=== PATIENT | female | born 1965 | race Caucasian/White ===

== ENCOUNTER 2019-08-19 11:22 | Emergency (ER) | payer SELFPAY ==
[2019-08-19] MEDS ORDERED: ONDANSETRON HCL INJ/PF 4 MG/2 ML SDV IV ONE (11:36)
[2019-08-19] MEDS ORDERED: MORPHINE SULFATE 10 MG/ML INJ IV ONE ×2 (11:36→14:15)
[2019-08-19] MEDS ORDERED: NORMAL SALINE 1000 ML 1,000 ML IV ONE (11:36)
--- NOTE | 2019-08-19 11:38 | ER Document Report ---
ED Medical Screen (RME) - General Chief Complaint: Abdominal Pain Stated Complaint: ABDOMINAL PAIN/SHARP PAIN/VOMITTING TRAVEL OUTSIDE OF THE [place] IN LAST 30 DAYS: No - HPI Notes: 08/19/19 11:36 Patient is a 53-year-old female with a history of perforated ulcer requiring surgery as well as subsequent abdominal wall hernia that was repaired 2 years ago who presents complaining of mid abdominal pain that is described as moderate to severe. Patient states that she has had pain for the past week, but it is worsening today with nausea and vomiting. Patient states that she did have bowel movement this morning. Has not noticed any melena or hematochezia. She is urinating normally. No fever, chest pain, shortness of breath. I have treated and performed a rapid initial assessment of this patient. A comprehensive ED assessment and evaluation of the patient, analysis of test results and completion of medical decision making process will be conducted by additional ED providers. PHYSICAL EXAMINATION: GENERAL: Well-appearing, well-nourished and in no acute distress. A&Ox4. Answers questions appropriately. Abdomen: Limited exam in triage. Patient does exhibit significant tenderness to the mid abdominal area just inferior to her incision. There is no erythema noted. Difficult to assess if any obvious hernia with standing. - Related Data Allergies/Adverse Reactions: Penicillins Allergy (Verified 08/19/19 11:35) Past Medical History GI Medical History: Reports: Hx Ulcer Past Surgical History: Reports: Hx Abdominal Surgery - ruptured ulcer repair Physical Exam - Vital signs Vitals: Temp Pulse Resp BP Pulse Ox 97.9 F 92 20 174/100 H 98 08/19/19 11:29 08/19/19 11:08/19/19 11:29 08/19/19 11:29 08/19/19 11:29 Course - Vital Signs Vital signs: Temp Pulse Resp BP Pulse Ox 97.9 F 92 20 174/100 H 98 08/19/19 11:29 08/19/19 11:29 08/19/19 11:29 08/19/19 11:29 08/19/19 11:29
[2019-08-19 12:32] LABS: ABSOLUTE BASOPHILS # (AUTO) 0.1 10^3/uL (0.0-0.2); ABSOLUTE EOSINOPHILS # (AUTO) 0.2 10^3/uL (0.0-0.6); ABSOLUTE MONOCYTES (AUTO) 0.9 10^3/uL (0.1-1.4); ABSOLUTE NEUT (AUTO) 6.3 10^3/uL (1.7-8.2); BASOPHILS % (AUTO) 0.9 % (0-2); EOSINOPHILS % (AUTO) 2.3 % (0-6); HEMATOCRIT 38.3 % (36.0-47.0); LYMPHOCYTES % (AUTO) 21.1 % (13-45); MEAN CORPUSCULAR HEMOGLOBIN 30.8 pg (27.0-33.4); MEAN CORPUSCULAR HGB CONC 33.8 g/dL (32.0-36.0); MEAN CORPUSCULAR VOLUME 91 fl (80-97); MONOCYTES % (AUTO) 9.2 % (3-13); PLATELET COUNT 347 10^3/uL (150-450); RED BLOOD COUNT 4.21 10^6/uL (3.72-5.28); RED CELL DISTRIBUTION WIDTH 13.7 % (11.5-14.0); SEGMENTED NEUTROPHILS % (AUTO) 66.5 % (42-78); TOTAL CELLS COUNTED % (AUTO) 100 %; WHITE BLOOD COUNT 9.5 10^3/uL (4.0-10.5)
[2019-08-19 12:35] LABS: APPEARANCE,URINE CLOUDY; BILIRUBIN,URINE NEGATIVE (NEGATIVE); COLOR,URINE YELLOW; GLUCOSE, URINE NEGATIVE (NEGATIVE); KETONES,URINE NEGATIVE (NEGATIVE); PROTEIN,URINE NEGATIVE (NEGATIVE); URINE SPECIFIC GRAVITY 1.018; UROBILINOGEN,URINE NEGATIVE mg/dL (<2.0)
[2019-08-19 12:53] LABS: ALBUMIN 4.1 g/dL (3.5-5.0); ALKALINE PHOSPHATASE 107 U/L (38-126); ANION GAP 11 (5-19); ASPARTATE AMINO TRANSFERASE 41 U/L (14-36); BILIRUBIN,DIRECT 0.2 mg/dL (0.0-0.4); BILIRUBIN,TOTAL 0.4 mg/dL (0.2-1.3); BLOOD UREA NITROGEN 18 mg/dL (7-20); CALCIUM 10.1 mg/dL (8.4-10.2); CARBON DIOXIDE 23 mmol/L (22-30); CHLORIDE 109 mmol/L (98-107); GLUCOSE 78 mg/dL (75-110); POTASSIUM 4.7 mmol/L (3.6-5.0); TOTAL PROTEIN 7.3 g/dL (6.3-8.2)
--- NOTE | 2019-08-19 15:14 | RADIOLOGY REPORT (SQ) ---
EXAM DESCRIPTION: CT ABD/PELVIS WITH IV ORAL COMPLETED DATE/TIME: 08/19/2019 2:47 pm REASON FOR STUDY: mid abd pain COMPARISON: None. TECHNIQUE: CT scan of the abdomen and pelvis performed using helical scanning technique with dynamic intravenous contrast injection. No oral contrast. Images reviewed with lung, soft tissue, and bone windows. Reconstructed coronal and sagittal MPR images reviewed. Delayed images for evaluation of the urinary system also acquired. All images stored on PACS. All CT scanners at this facility use dose modulation, iterative reconstruction, and/or weight based d osing when appropriate to reduce radiation dose to as low as reasonably achievable (ALARA). [facility]: Dose Right [facility]: CareDose [facility]: Dose Right [facility]: Teradose 4D [facility]: Medsurant Monitoring CONTRAST TYPE AND DOSE: contrast/concentration: Isovue 350.00 mg/ml; Total Contrast Delivered: 90.0 ml; Total Saline Delivered: 43.1 ml RENAL FUNCTION: GFR > 60. RADIATION DOSE: CT Rad equipment meets quality standard of care and radiation dose reduction techniq ues were employed. CTDIvol: 7.4 - 10.3 mGy. DLP: 959 mGy-cm.. LIMITATIONS: None. FINDINGS: LOWER CHEST: No significant findings. No nodules or infiltrates. LIVER: Normal size. No masses. No dilated ducts. SPLEEN: Normal size. No focal lesions. PANCREAS: No masses. No significant calcifications. No adjacent inflammation or peripancreatic fluid collections. Pancreatic duct not dilated. GALLBLADDER: No identified stones by CT criteria. No inflammatory changes to suggest cholecystitis. ADRENAL GLANDS: No significant masses or asymmetry. RIGHT KIDNEY AND URETER: No solid masses. No significant calcifications. No hydronephrosis or hyd roureter. LEFT KIDNEY AND URETER: No solid masses. No significant calcifications. No hydronephrosis or hydr oureter. AORTA AND VESSELS: No aneurysm. No dissection. Renal arteries, SMA, celiac without stenosis. RETROPERITONEUM: No retroperitoneal adenopathy, hemorrhage or masses. BOWEL AND PERITONEAL CAVITY: No masses or inflammatory changes. No free fluid or peritoneal masses. Sigmoid diverticulosis. APPENDIX: Normal. PELVIS: No mass. No free fluid. Normal bladder. ABDOMINAL WALL: No masses. There is diastasis rectus status post mesh repair of a midline ventral he rnia. There is a small, fat containing residual ventral hernia at the inferior aspect of this repair (series 3, image 42). BONES: No significant or acute findings. OTHER: No other significant finding. IMPRESSION: 1. No acute CT findings to explain abdominal pain. 2. There is diastasis rectus status post mesh repair of a midline ventral hernia. There is a small, fat containing residual ventral hernia at the inferior aspect of this repair (series 3, image 42). 3. Normal appendix. 4. Diverticulosis without evidence of acute diverticulitis. TECHNICAL DOCUMENTATION: JOB ID: [id number] Quality ID # [id number]: Final reports with documentation of one or more dose reduction techniques (e.g., Au tomated exposure control, adjustment of the mA and/or kV according to patient size, use of iterative reconstruction technique) 2010 [employer] All Rights Reserved Reading location - IP/workstation name: [email or web address]
--- NOTE | 2019-08-19 15:21 | ER Document Report ---
ED GI/ - General Chief Complaint: Abdominal Pain Stated Complaint: ABDOMINAL PAIN/SHARP PAIN/VOMITTING Time Seen by Provider: 08/19/19 11:38 Notes: RME NOTE: Patient is a 53-year-old female with a history of perforated ulcer requiring surgery as well as subsequent abdominal wall hernia that was repaired 2 years ago who presents complaining of mid abdominal pain that is described as moderate to severe. Patient states that she has had pain for the past week, but it is worsening today with nausea and vomiting. Patient states that she did have bowel movement this morning. Has not noticed any melena or hematochezia. She is urinating normally. No fever, chest pain, shortness of breath. MY HPI: Patient voices she vomited approximately 5 times, is denying any blood in her emesis. Patient's denying any diarrhea, fevers, dysuria or vaginal discharge. Patient voices she does not take any acid indigestion medications, states she only takes medication for anxiety, she is unsure of the name. Patient voices she has had this pain intermittently for the last week. States it was more of a sharp and burning sensation today and more frequently which is why she presents to the emergency room. TRAVEL OUTSIDE OF THE [place] IN LAST 30 DAYS: No - Related Data Allergies/Adverse Reactions: Penicillins Allergy (Verified 08/19/19 11:35) Past Medical History - General Information source: Patient - Social History Smoking Status: Current Every Day Smoker Chew tobacco use (# tins/day): No Frequency of alcohol use: Rare Drug Abuse: None Family History: Reviewed & Not Pertinent Patient has suicidal ideation: No Patient has homicidal ideation: No GI Medical History: Reports: Hx Ulcer Past Surgical History: Reports: Hx Abdominal Surgery - ruptured ulcer repair/hernia repair Review of Systems - Review of Systems Constitutional: denies: Fever EENT: No symptoms reported Cardiovascular: No symptoms reported Respiratory: No symptoms reported Gastrointestinal: See HPI Genitourinary: See HPI Female Genitourinary: No symptoms reported Musculoskeletal: No symptoms reported Skin: No symptoms reported Hematologic/Lymphatic: No symptoms reported Neurological/Psychological: No symptoms reported Physical Exam - Vital signs Vitals: Temp Pulse Resp BP Pulse Ox 97.9 F 92 20 174/100 H 98 08/19/19 11:29 08/19/19 11:29 08/19/19 11:29 08/19/19 11:29 08/19/19 11:29 - Notes Notes: GENERAL: Alert, interacts well. No acute distress. HEAD: Normocephalic, atraumatic. EYES: Pupils equal, round, and reactive to light. Extraocular movements intact. ENT: Oral mucosa moist, tongue midline. NECK: Full range of motion. Supple. Trachea midline. LUNGS: Clear to auscultation bilaterally, no wheezes, rales, or rhonchi. No respiratory distress. HEART: Regular rate and rhythm. No murmur ABDOMEN: Soft, well-healed linear surgical scar noted, slight epigastric tenderness and left upper quadrant tenderness noted. Non-distended. Bowel sounds present in all 4 quadrants. EXTREMITIES: Moves all 4 extremities spontaneously. No edema, normal radial and dorsalis pedis pulses bilaterally. No cyanosis. BACK: no cervical, thoracic, lumbar midline tenderness. No saddle anesthesia, normal distal neurovascular exam. No CVA tenderness noted bilaterally. NEUROLOGICAL: Alert and oriented x3. Normal speech. cranial nerves II through XII grossly intact PSYCH: Normal affect, normal mood. SKIN: Warm, dry, normal turgor. No rashes or lesions noted. Course - Re-evaluation Re-evalutation: 08/19/19 15:53 Laboratory 08/19/19 08/19/19 08/19/19 11:52 11:52 12:10 WBC 9.5 RBC 4.21 Hgb 13.0 Hct 38.3 MCV 91 MCH 30.8 MCHC 33.8 RDW 13.7 Plt Count 347 Lymph % (Auto) 21.1 Cook % (Auto) 9.2 Eos % (Auto) 2.3 Baso % (Auto) 0.9 Absolute Neuts (auto) 6.3 Absolute Lymphs (auto) 2.0 Absolute Monos (auto) 0.9 Absolute Eos (auto) 0.2 Absolute Basos (auto) 0.1 Seg Neutrophils % 66.5 Sodium Potassium Chloride Carbon Dioxide Anion Gap BUN Creatinine Est GFR ( Amer) Est GFR (MDRD) Non-Af Glucose Calcium Total Bilirubin Direct Bilirubin Neonat Total Bilirubin Neonat Direct Bilirubin Neonat Indirect Bili AST ALT Alkaline Phosphatase Total Protein Albumin Lipase Urine Color YELLOW Urine Appearance CLOUDY Urine pH 6.0 Ur Specific [place] 1.018 Urine Protein NEGATIVE Urine Glucose (UA) NEGATIVE Urine Ketones NEGATIVE Urine Blood SMALL H Urine Nitrite (Reflex) NEGATIVE Urine Bilirubin NEGATIVE Urine Urobilinogen NEGATIVE Leukocyte Esterase Rfl NEGATIVE Urine RBC (Auto) 2 Urine Bacteria (Auto) TRACE Urine WBC (Reflex) 2 Squamous Epi Cells Auto 19 Urine Mucus (Auto) RARE Urine Ascorbic Acid NEGATIVE Urine HCG, Qual NEGATIVE 08/19/19 12:10 WBC RBC Hgb Hct MCV MCH MCHC RDW Plt Count Lymph % (Auto) Cook % (Auto) Eos % (Auto) Baso % (Auto) Absolute Neuts (auto) Absolute Lymphs (auto) Absolute Monos (auto) Absolute Eos (auto) Absolute Basos (auto) Seg Neutrophils % Sodium 142.5 Potassium 4.7 Chloride 109 H Carbon Dioxide 23 Anion Gap 11 BUN 18 Creatinine 0.72 Est GFR ( Amer) > 60 Est GFR (MDRD) Non-Af > 60 Glucose 78 Calcium 10.1 Total Bilirubin 0.4 Direct Bilirubin 0.2 Neonat Total Bilirubin Not Reportable Neonat Direct Bilirubin Not Reportable Neonat Indirect Bili Not Reportable AST 41 H ALT 37 Alkaline Phosphatase 107 Total Protein 7.3 Albumin 4.1 Lipase 102.2 Urine Color Urine Appearance Urine pH Ur Specific [place] Urine Protein Urine Glucose (UA) Urine Ketones Urine Blood Urine Nitrite (Reflex) Urine Bilirubin Urine Urobilinogen Leukocyte Esterase Rfl Urine RBC (Auto) Urine Bacteria (Auto) Urine WBC (Reflex) Squamous Epi Cells Auto Urine Mucus (Auto) Urine Ascorbic Acid Urine HCG, Qual Abdomen/Pelvis CT 08/19/19 00:00 IMPRESSION: 1. No acute CT findings to explain abdominal pain. 2. There is diastasis rectus status post mesh repair of a midline ventral hernia. There is a small, fat containing residual ventral hernia at the inferior aspect of this repair (series 3, image 42). 3. Normal appendix. 4. Diverticulosis without evidence of acute diverticulitis. Patient's examination does reveal slight epigastric and left upper quadrant abdominal pain noted. CT is as noted above. I discussed with patient potentially using a GI cocktail to see if this is indigestion related. Again patient voices she was never placed on indigestion medications after her perforated ulcer in her stomach was repaired. Patient voices "I had really bad doctors." Patient voices she is new to the area, will give her primary care and gastroenterology follow-up. After GI cocktail patient voices she is feeling better. Discussed continued use of prescription medications with close follow-up with primary care and gastroenterology. - Vital Signs Vital signs: Temp Pulse Resp BP Pulse Ox 98.0 F 73 16 165/94 H 98 08/19/19 16:08 08/19/19 16:08 08/19/19 16:08 08/19/19 16:08 08/19/19 16:08 - Laboratory Result Diagrams: 08/19/19 12:10 08/19/19 12:10 Laboratory results interpreted by me: 08/19/19 08/19/19 11:52 12:10 Chloride 109 H AST 41 H Urine Blood SMALL H Discharge - Discharge Clinical Impression: Abdominal pain Qualifiers: Abdominal location: upper abdomen, unspecified Qualified Code(s): R10.10 - Upper abdominal pain, unspecified Gastritis Qualifiers: Gastritis type: unspecified gastritis Chronicity: chronic Gastritis bleeding: without bleeding Qualified Code(s): K29.50 - Unspecified chronic gastritis without bleeding Nausea & vomiting Qualifiers: Vomiting type: unspecified Vomiting Intractability: non-intractable Qualified Code(s): R11.2 - Nausea with vomiting, unspecified Condition: Stable Disposition: HOME, SELF-CARE Instructions: Abdominal Pain ([facility]), Antinausea Medication ([facility]), Gastritis ([facility]) Additional Instructions: As we discussed you have been seen and treated in the emergency department for your abdominal pain. All of your labs and CT images were normal. I do feel as though this may be indigestion related. Please take medication as prescribed. Please also make sure you follow-up with a primary care provider and hospital unit coordinator. Phone numbers per both doctors are provided in this packet. Please return to the emergency department for any concerns. Prescriptions: Famotidine [Pepcid 40 mg Tablet] 20 mg PO BID #60 tablet Ondansetron [Zofran Odt 4 mg Tablet] 1 - 2 tab PO Q6 PRN #12 tab.rapdis PRN Reason: For Nausea/Vomiting Forms: Elevated Blood Pressure Referrals: MARY KRAMER MD [ACTIVE STAFF] - Follow up as needed SARA SOLOMON MD [ACTIVE STAFF] - Follow up as needed
[2019-08-19] MEDS ORDERED: LIDOCAINE 2% VISCOUS SOLN 20 ML UDCUP PO ONE (15:49)
[2019-08-19] MEDS ORDERED: MAG HYDROX/AL HYDROX/SIMETH SUSP 30 ML UDCUP PO ONE (15:49)
[2019-08-19] MEDS ORDERED: METOCLOPRAMIDE HCL ORAL SOLN 10 MG/10 ML UDCUP PO ONE (15:49)
[2019-08-19 16:08] VITALS: BP 165/94
== END 2019-08-19 17:01 | disposition home or self-care (01) ==
LOC: ER 11:22
DX: K29.50 Unspecified chronic gastritis without bleeding (principal); R10.13 Epigastric pain; R10.12 Left upper quadrant pain; R10.816 Epigastric abdominal tenderness; R10.812 Left upper quadrant abdominal tenderness; R11.2 Nausea with vomiting, unspecified; M62.08 Separation of muscle (nontraumatic), other site; K43.9 Ventral hernia without obstruction or gangrene; K57.30 Diverticulosis of large intestine without perforation or abscess without bleeding; F41.9 Anxiety disorder, unspecified; Z79.899 Other long term (current) drug therapy; F17.200 Nicotine dependence, unspecified, uncomplicated; Z87.11 Personal history of peptic ulcer disease; Z88.0 Allergy status to penicillin
CPT/HCPCS: 36415; 83690; 85025; 81025; 80053; 81001; 74177; J3490; J2270; J2405; J7030; 96361; 96374; 96375; 96376; 99284

== ENCOUNTER 2019-09-30 17:55 | Emergency (ER) | payer SELFPAY ==
[2019-09-30] MEDS ORDERED: MORPHINE SULFATE 10 MG/ML INJ IV ONE (18:59)
[2019-09-30] MEDS ORDERED: ONDANSETRON HCL INJ/PF 4 MG/2 ML SDV IV ONE (18:59)
--- NOTE | 2019-09-30 18:59 | ER Document Report ---
ED Medical Screen (RME) - General Chief Complaint: Abdominal Pain Stated Complaint: ABDOMINAL PAIN/POST INTESTINAL SURGERY Time Seen by Provider: 09/30/19 18:55 TRAVEL OUTSIDE OF THE [place] IN LAST 30 DAYS: No - HPI Notes: 09/30/19 18:58 Patient is a 53-year-old female who is about 6 weeks status post appendectomy with hernia repair the next day complaining of left lower quadrant abdominal pain that is sharp and been present for 2 days. She will have occasional nausea but is not vomiting. She is having normal bowel movements. She is urinating normally. No fever. Patient does have a history of diverticulosis. I have treated and performed a rapid initial assessment of this patient. A comprehensive ED assessment and evaluation of the patient, analysis of test results and completion of medical decision making process will be conducted by additional ED providers. PHYSICAL EXAMINATION: GENERAL: Well-appearing, well-nourished and in no acute distress. A&Ox4. Answers questions appropriately. Abdomen: Limited exam in triage, but tender to the left lower quadrant. - Related Data Allergies/Adverse Reactions: Penicillins Allergy (Verified 09/30/19 18:54) Past Medical History GI Medical History: Reports: Hx Ulcer Past Surgical History: Reports: Hx Abdominal Surgery - ruptured ulcer repair/hernia repair Physical Exam - Vital signs Vitals: Temp Pulse Resp BP Pulse Ox 97.9 F 69 16 156/85 H 98 09/30/19 18:05 09/30/19 18:05 09/30/19 18:05 09/30/19 18:05 09/30/19 18:05 Course - Vital Signs Vital signs: Temp Pulse Resp BP Pulse Ox 97.9 F 69 16 156/85 H 98 09/30/19 18:05 09/30/19 18:05 09/30/19 18:05 09/30/19 18:05 09/30/19 18:05
[2019-09-30 20:27] LABS: ABSOLUTE BASOPHILS # (AUTO) 0.1 10^3/uL (0.0-0.2); ABSOLUTE EOSINOPHILS # (AUTO) 0.4 10^3/uL (0.0-0.6); ABSOLUTE LYMPHOCYTES (AUTO) 2.1 10^3/uL (0.5-4.7); ABSOLUTE NEUT (AUTO) 6.9 10^3/uL (1.7-8.2); EOSINOPHILS % (AUTO) 3.6 % (0-6); HEMATOCRIT 36.4 % (36.0-47.0); HEMOGLOBIN 12.6 g/dL (12.0-15.5); LYMPHOCYTES % (AUTO) 20.1 % (13-45); MEAN CORPUSCULAR HEMOGLOBIN 31.4 pg (27.0-33.4); MEAN CORPUSCULAR HGB CONC 34.5 g/dL (32.0-36.0); MEAN CORPUSCULAR VOLUME 91 fl (80-97); MONOCYTES % (AUTO) 9.6 % (3-13); PLATELET COUNT 289 10^3/uL (150-450); RED BLOOD COUNT 4.01 10^6/uL (3.72-5.28); RED CELL DISTRIBUTION WIDTH 13.6 % (11.5-14.0); SEGMENTED NEUTROPHILS % (AUTO) 65.7 % (42-78); TOTAL CELLS COUNTED % (AUTO) 100 %; WHITE BLOOD COUNT 10.6 10^3/uL (4.0-10.5)
[2019-09-30 20:44] LABS: ALBUMIN 3.9 g/dL (3.5-5.0); ALKALINE PHOSPHATASE 98 U/L (38-126); ANION GAP 11 (5-19); ASPARTATE AMINO TRANSFERASE 19 U/L (14-36); BILIRUBIN,DIRECT 0.3 mg/dL (0.0-0.4); BILIRUBIN,TOTAL 0.3 mg/dL (0.2-1.3); BLOOD UREA NITROGEN 17 mg/dL (7-20); CALCIUM 9.5 mg/dL (8.4-10.2); CARBON DIOXIDE 21 mmol/L (22-30); CHLORIDE 108 mmol/L (98-107); GLUCOSE 83 mg/dL (75-110); POTASSIUM 3.6 mmol/L (3.6-5.0); TOTAL PROTEIN 7.1 g/dL (6.3-8.2)
[2019-09-30 21:01] LABS: APPEARANCE,URINE SLIGHTLY-CLOUDY; BILIRUBIN,URINE NEGATIVE (NEGATIVE); COLOR,URINE YELLOW; GLUCOSE, URINE NEGATIVE (NEGATIVE); KETONES,URINE NEGATIVE (NEGATIVE); PROTEIN,URINE 30 mg/dL (NEGATIVE); URINE SPECIFIC GRAVITY 1.032; UROBILINOGEN,URINE NEGATIVE mg/dL (<2.0)
[2019-09-30] MEDS ORDERED: NORMAL SALINE 1000 ML 1,000 ML IV ONE ×2 (21:20)
--- NOTE | 2019-09-30 21:26 | ER Document Report ---
ED GI/ - General Chief Complaint: Abdominal Pain Stated Complaint: ABDOMINAL PAIN/POST INTESTINAL SURGERY Time Seen by Provider: 09/30/19 18:55 Primary Care Provider: ERNA CHRISTOPHER MD [Primary Care Provider] - Follow up as needed Mode of Arrival: Ambulatory Information source: Patient Notes: 53-year-old female presented to ED for complaint of abdominal pain lower right and left abdomen. She states is actually been hurting since she had her appendectomy and hernia repair the day after Thanksgiving but is been worse the last 2 days. She states she has been nausea no vomiting. She states she has been having normal bowel movements. She states she is urinating with no difficulty no pain blood or discharge. She denies any fevers. She states she does have a history of diverticulosis but not diverticulitis. Patient is alert oriented respirations regular nonlabored answering all questions appropriately. TRAVEL OUTSIDE OF THE [place] IN LAST 30 DAYS: No - HPI Patient complains to provider of: Abdominal pain - Left and right lower abdomen Onset: Other - Since her appendectomy and hernia repair after Thanksgiving Timing/Duration: Persistent, Worse Quality of pain: Sharp Severity at maximum: Moderate Severity in ED: Moderate Pain Level: 3 Location: LLQ, RLQ Vaginal bleeding (Compared to normal period): None Associated symptoms: Nausea. denies: Diarrhea, Vomiting Exacerbated by: Movement, Food Relieved by: Denies Similar symptoms previously: Yes Recently seen / treated by doctor: Yes - Related Data Allergies/Adverse Reactions: Penicillins Allergy (Verified 09/30/19 18:54) Past Medical History - General Information source: Patient - Social History Smoking Status: Current Every Day Smoker Cigarette use (# per day): Yes - 1/2 pack/day Chew tobacco use (# tins/day): No Smoking Education Provided: Yes - 4 minutes Frequency of alcohol use: None Drug Abuse: None Lives with: Family Family History: Reviewed & Not Pertinent Patient has suicidal ideation: No Patient has homicidal ideation: No - Past Medical History Cardiac Medical History: Reports: None Pulmonary Medical History: Reports: None EENT Medical History: Reports: None Neurological Medical History: Reports: None Endocrine Medical History: Reports: None Renal/ Medical History: Reports: None Malignancy Medical History: Reports: None GI Medical History: Reports: Hx Ulcer, Hx Colonoscopy, Hx Endoscopy, Other - Reticulosis, hernias Musculoskeletal Medical History: Reports None Skin Medical History: Reports None Psychiatric Medical History: Reports: Hx Anxiety Traumatic Medical History: Reports: None Infectious Medical History: Reports: None Past Surgical History: Reports: Hx Abdominal Surgery - ruptured ulcer repair/hernia repair, small bowel repair, Hx Appendectomy, Hx Tubal Ligation - Immunizations Immunizations up to date: Yes Hx Diphtheria, Pertussis, Tetanus Vaccination: Yes - 2012 History of Influenza Vaccine for 06/2019 - 11/2019 Season: Yes Review of Systems - Review of Systems Constitutional: No symptoms reported EENT: No symptoms reported Cardiovascular: No symptoms reported Respiratory: No symptoms reported Gastrointestinal: Abdominal pain, Nausea Genitourinary: No symptoms reported Female Genitourinary: No symptoms reported Musculoskeletal: No symptoms reported Skin: No symptoms reported Hematologic/Lymphatic: No symptoms reported Neurological/Psychological: No symptoms reported -: Yes All other systems reviewed and negative Physical Exam - Vital signs Vitals: Temp Pulse Resp BP Pulse Ox 97.9 F 69 16 156/85 H 98 09/30/19 18:05 09/30/19 18:05 09/30/19 18:05 09/30/19 18:05 09/30/19 18:05 Interpretation: Normal - General General appearance: Appears well, Alert - HEENT Head: Normocephalic, Atraumatic Eyes: Normal Pupils: PERRL - Respiratory Respiratory status: No respiratory distress Chest status: Nontender Breath sounds: Normal Chest palpation: Normal - Cardiovascular Rhythm: Regular Heart sounds: Normal auscultation Murmur: No - Abdominal Inspection: Normal Distension: No distension Bowel sounds: Normal Tenderness: Tender - Left and right lower abdomen Organomegaly: No organomegaly - Back Back: Normal, Nontender - Extremities General upper extremity: Normal inspection, Nontender, Normal color, Normal ROM, Normal temperature General lower extremity: Normal inspection, Nontender, Normal color, Normal ROM, Normal temperature, Normal weight bearing. No: Zenaida's sign - Neurological Neuro grossly intact: Yes Cognition: Normal Orientation: AAOx4 Ragini Coma Scale Eye Opening: Spontaneous Austin Coma Scale Verbal: Oriented Austin Coma Scale Motor: Obeys Commands Ragini Coma Scale Total: 15 Speech: Normal Motor strength normal: LUE, RUE, LLE, RLE Sensory: Normal - Psychological Associated symptoms: Normal affect, Normal mood - Skin Skin Temperature: Warm Skin Moisture: Dry Skin Color: Normal Course - Re-evaluation Re-evalutation: 10/01/19 10:49 Patient was treated with narcotics nausea medicine and IV fluids for her abdominal pain and mild dehydration. Patient had no acute findings on her CAT scan. She was discharged home after 2 L of fluid and a negative CAT scan with instructions to follow-up with her primary care. Patient verbalized understanding and agreement treatment plan patient was discharged home. - Vital Signs Vital signs: Temp Pulse Resp BP Pulse Ox 98.3 F 69 19 154/94 H 96 10/01/19 01:01 09/30/19 18:05 10/01/19 01:01 10/01/19 01:01 10/01/19 01:01 - Laboratory Result Diagrams: 09/30/19 19:50 09/30/19 19:50 Laboratory results interpreted by me: 09/30/19 09/30/19 09/30/19 19:50 19:50 20:07 WBC 10.6 H Chloride 108 H Carbon Dioxide 21 L Urine Protein 30 H Urine Blood SMALL H - Diagnostic Test Radiology reviewed: Image reviewed, Reports reviewed Discharge - Discharge Clinical Impression: Abdominal pain Qualifiers: Abdominal location: lower abdomen, unspecified Qualified Code(s): R10.30 - Lower abdominal pain, unspecified Condition: Stable Disposition: HOME, SELF-CARE Additional Instructions: ABDOMINAL PAIN: There are many causes of abdominal pain. Pain can mean a serious problem requiring surgery (such as appendicitis). It can also be an innocent problem that goes away on its own (such as a viral infection). Often, time must pass to determine the cause of pain. The physician does not feel that hospitalization is necessary, at present. Things may change within the next 24 hours. Call the doctor or come back for re- examination if any problems occur, such as: (1) Pain that becomes more severe, steady, or becomes concentrated in one specific area. Also, pain that is more severe with movement or coughing. (2) Vomiting that persists or becomes more frequent. (3) Blood in the vomitus, urine, or bowel movements. Blood in the stool may have a tarry or black appearance. (4) Shaking chills or fever greater than 100 degrees F. (5) The abdomen becomes more distended or swollen. (6) Bowel movements cease. (7) Failure to improve as expected. NORMAL EXAM AND WORKUP: At this time, your examination and workup show no significant abnormality. No significant abnormal physical findings are noted. All laboratory, EKG, and imaging (x-ray, CT scans, ultrasound) studies that were ordered show no significant abnormality. Although your examination and all studies that were ordered showed no significant abnormal finding, there are no examinations and no studies that are 100% accurate. There is always the possibility that some abnormality could exist and not be detected with physical examination or within the limits and capabilities of laboratory and other studies. You should return or follow up as you were instructed on your visit today for further evaluation if your symptoms do not resolve. PAIN MEDICATION INJECTION: You have received an injection of a pain medication. You should experience significant pain relief within 45 minutes. This drug is a narcotic -- it will impair your judgement, slow your reaction time and make you sleepy (as well as relieve your pain). Narcotics also can cause nausea. You should not drive, work with machinery, or perform any task requiring mental alertness until all effects of the medication are gone -- six to eight hours. Do not take any alcohol, or sedatives, and do not take any other medication without checking with your physician. ANTINAUSEA MEDICATION: You have been given a medication to suppress nausea and vomiting. This type of medication can be given as a shot, pill, or suppository. It will usually last for many hours. Pills and shots usually last six to eight hours, suppositories last about 12 hours. For the typical illness, only one or two doses of the medication may be necessary. Mild lightheadedness may occur. This type of medicine can cause drowsiness. Do not drive or operate dangerous machinery while under its influence. Do not mix with alcohol. See your doctor at once if you have muscle spasms or tightness, or uncontrollable motions (particularly of the neck, mouth, or jaw). Persistent vomiting or severe lightheadedness should also be evaluated by the physician. FOLLOW-UP CARE: If you have been referred to a physician for follow-up care, call the physicians office for an appointment as you were instructed or within the next two days. If you experience worsening or a significant change in your symptoms, notify the physician immediately or return to the Emergency Department at any t casey for re-evaluation. Forms: Elevated Blood Pressure, Smoking Cessation Education, Return to Work Referrals: ERNA CHRISTOPHER MD [Primary Care Provider] - Follow up as needed
[2019-09-30] MEDS ORDERED: HYDROMORPHONE HCL INJ/PF 2 MG/ML AMPULE IV ONE (21:49)
--- NOTE | 2019-09-30 23:28 | RADIOLOGY REPORT (SQ) ---
CT abdomen and pelvis with contrast on 09/30/2019 9:25 PM CLINICAL INDICATION: Left lower quadrant pain TECHNIQUE: Multiple axial images are obtained throughout the abdomen and pelvis following the administration of IV contrast, 88 mL of Omnipaque 350 contrast was administered intravenously without complication. This exam was performed according to our departmental dose-optimization program, which includes automated exposure control, adjustment of the mA and/or kV according to patient size and/or use of iterative reconstruction technique. Total DLP is 897.25 mGy*cm. COMPARISON: 08/19/2019 FINDINGS: Abdomen: There is minimal bibasilar atelectasis and/or scarring. Stable left hepatic cyst is noted. The solid abdominal organs are otherwise unremarkable. There is no abdominal adenopathy. There is no free fluid or free air within the abdomen. The abdominal portion of the GI tract is unremarkable. The patient is status post anterior abdominal wall hernia repair. Pelvis: Pelvic organs appear unremarkable by CT. There is no free fluid in the pelvis. There is diverticulosis. Pelvic portion of the GI tract is otherwise unremarkable. There is no pelvic adenopathy. No bony abnormality is noted. IMPRESSION: 1. Diverticulosis. 2. No acute abnormality.
[2019-10-01 01:07] VITALS: BP 154/94
== END 2019-10-01 01:10 | disposition home or self-care (01) ==
LOC: ER 17:55
DX: R10.31 Right lower quadrant pain (principal); R10.32 Left lower quadrant pain; R11.0 Nausea; E86.0 Dehydration; F17.210 Nicotine dependence, cigarettes, uncomplicated; Z71.6 Tobacco abuse counseling; Z90.49 Acquired absence of other specified parts of digestive tract; Z98.890 Other specified postprocedural states; Z88.0 Allergy status to penicillin
CPT/HCPCS: 99406; 99284; 96361; 96374; 96375; 36415; 83690; 85025; 80053; 81001; 74177; J2270; J1170; J2405; J7030

== ENCOUNTER 2020-01-03 10:13 | Emergency (ER) | payer SELFPAY ==
--- NOTE | 2020-01-03 10:40 | ER Document Report ---
HPI - HPI Onset: Other - 3 days Context: Patient presents to the [facility] for evaluation of upper respiratory symptoms. Patient reports fever of 102, chills, body aches runny nose and sore throat. Patient does report cough and occasional shortness of breath. Patient denies any nausea or vomiting. Patient denies any abdominal tenderness. Patient does complain of some headache pain. Patient is currently a smoker half pack per day. Patient denies any significant medical history. She reports symptoms for the past 3 days. Associated Symptoms: Body/muscle aches, Nonproductive cough, Fever, Rhinnorhea, Sore throat Exacerbated by: Denies Relieved by: Denies Recently seen / treated by doctor: No - ROS ROS below otherwise negative: Yes Systems Reviewed and Negative: Yes All other systems reviewed and negative - CONSTITUTIONAL Constitutional: REPORTS: Fever, Chills - EENT EENT: REPORTS: Sore Throat, Congestion - NEURO Neurology: REPORTS: Headache - RESPIRATORY Respiratory: REPORTS: Coughing - GASTROINTESTINAL Gastrointestinal: DENIES: Abdominal Pain, Nausea, Patient vomiting, Diarrhea - REPRODUCTIVE Reproductive: DENIES: : - DERM Skin Color: Normal Skin Problems: None Past Medical History - General Information source: Patient - Social History Smoking Status: Current Every Day Smoker Family History: Reviewed & Not Pertinent GI Medical History: Reports: Hx Ulcer, Hx Colonoscopy, Hx Endoscopy Psychiatric Medical History: Reports: Hx Anxiety Past Surgical History: Reports: Hx Abdominal Surgery - ruptured ulcer repair/hernia repair, small bowel repair, Hx Appendectomy, Hx Tubal Ligation - Immunizations Immunizations up to date: Yes Hx Diphtheria, Pertussis, Tetanus Vaccination: Yes - 2013 [facility] Provider Document - CONSTITUTIONAL Agree With Documented VS: Yes Exam Limitations: No Limitations General Appearance: WD/WN, No Apparent Distress - INFECTION CONTROL TRAVEL OUTSIDE OF THE [place] IN LAST 30 DAYS: No - HEENT HEENT: Atraumatic, Normocephalic, Pharyngeal Tenderness. negative: Pharyngeal Exudate, Pharyngeal Erythema - NECK Neck: Normal Inspection, Supple - RESPIRATORY Respiratory: No Respiratory Distress, Chest Non-Tender, Wheezing - faint scattered - CARDIOVASCULAR Cardiovascular: Regular Rate, Regular Rhythm, No Murmur - MUSCULOSKELETAL/EXTREMETIES Musculoskeletal/Extremeties: MAEW - NEURO Level of Consciousness: Awake, Alert, Appropriate Motor/Sensory: No Motor Deficit - DERM Integumentary: Warm, Dry, No Rash Course - Re-evaluation Re-evalutation: 01/03/20 12:05 The patient was evaluated during the global Covid 19 pandemic, and that diagnosis was suspected/considered upon their initial presentation. Their evaluation, treatment and testing was consistent with current guidelines for patients who present with complaints or symptoms that may be related to Covid 19. Patient presents with upper respiratory symptoms worrisome for possible Covid 19. Patient does not have emergency worring symptoms such as difficulty breathing, shortness of breath, chest pain, pressure, confusion or cyanosis. Patient appears suitable for discharge as they are not of an advanced age, do not have any chronic medical conditions such as diabetes, CAD, immune deficiency, chronic lung disease or chronic kidney disease. Patient's vital signs are stable and patient is nontoxic in appearance. Good return precautions have been discussed with patient, patient verbalized understanding and is agreeable with discharge plan of care at this time. Decision not to send specimen for meyers virus testing was based on screening criteria per the [facility] December 19 recommendations as patient does not have any significant chronic medical problems is not greater than 65 years of age, is not , does not work in healthcare setting and has not had known contact with someone diagnosed with a virus. - Laboratory Laboratory results interpreted by me: 01/03/20 12:05 Labs- Entire Visit 01/03/20 01/03/20 10:38 10:38 Influenza A (Rapid) NEGATIVE Influenza B (Rapid) NEGATIVE Group A Strep Rapid NEGATIVE Discharge - Discharge Clinical Impression: Sore throat Upper respiratory infection Qualifiers: URI type: unspecified URI Qualified Code(s): J06.9 - Acute upper respiratory infection, unspecified Condition: Stable Disposition: HOME, SELF-CARE Instructions: Acetaminophen, Sore Throat ([facility]), Upper Respiratory Illness ([facility]) Additional Instructions: Return immediately for any new or worsening symptoms Followup with your primary care provider, call tomorrow to make a followup appointment We will notify you of your strep and flu test later today. If you feel that you cannot manage her symptoms at home, present to the emergency department for further evaluation. Call 911 if your symptoms become severe. Prescriptions: Inhaler,Assist Device,Accesory [Optichamber] 1 each MC Q4 PRN #1 each PRN Reason: Albuterol Sulfate [Proair Hfa Inhalation Aerosol 8.5 gm Mdi] 2 puff IH Q4 PRN #1 mdi PRN Reason: Forms: Return to Work
[2020-01-03 11:35] VITALS: BP 175/88
[2020-01-03 11:38] LABS: A TYPE INFLUENZA AG NEGATIVE (NEGATIVE); B INFLUENZA AG NEGATIVE (NEGATIVE)
== END 2020-01-03 13:21 | disposition home or self-care (01) ==
LOC: EDRDC 10:13
DX: J06.9 Acute upper respiratory infection, unspecified (principal); Z20.828 Contact with and (suspected) exposure to other viral communicable diseases; J02.9 Acute pharyngitis, unspecified; R50.9 Fever, unspecified; R05 Cough; J34.89 Other specified disorders of nose and nasal sinuses; R51 Headache; M79.10 Myalgia, unspecified site; F17.200 Nicotine dependence, unspecified, uncomplicated
CPT/HCPCS: 87070; 87804; 87880; 99211

== ENCOUNTER 2020-06-01 15:22 | Emergency (ER) | payer OTHER ==
--- NOTE | 2020-06-01 15:41 | ER Document Report ---
ED Extremity Problem, Upper - General Chief Complaint: Arm Injury Stated Complaint: ARM INJURY Time Seen by Provider: 06/01/20 15:29 Primary Care Provider: [facility] [Provider Group] - Follow up as needed IGLESIA TOTH MD [NO LOCAL MD] - Follow up as needed Mode of Arrival: Ambulatory Information source: Patient Notes: 54-year-old female presented to ED for increasing pain to the right arm over the last 3 weeks. She states this started being in the lower arm but now it hurts in the elbow shoulder and hand. She states even the fingers are now. She is alert oriented respirations regular nonlabored speaking in full sentences. She does have a history of an appendectomy and ulcers. 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 She does smoke 1/2 pack a day. REVIEW OF SYSTEMS: CONSTITUTIONAL : Denies fever, chills, or sweats. Denies recent illness. MUSCULOSKELETAL: Denies neck or back pain or joint pain or swelling. NEUROLOGICAL: Denies altered mental status or loss of consciousness. Denies headache. Denies weakness or paralysis or loss of use of either side. Denies problems with gait or speech. Denies sensory or motor loss. PSYCHIATRIC: Denies anxiety or stress or depression. ALL OTHER SYSTEMS REVIEWED AND NEGATIVE. VITAL SIGNS: Within normal limits. GENERAL: No acute distress, non-toxic appearance. HEAD: Normal with no signs of head trauma. NECK: Normal range of motion, no tenderness, supple, no lymphadenopathy, No adenopathy, no JVD. CHEST: Clear breath sounds bilaterally. No wheezes, rales, or rhonchi. CARDIAC: Regular rate and rhythm. S1 and S2, without murmurs, gallops, or rubs. MUSCULOSKELETAL: Good range of motion of all major joints. Extremities without clubbing, cyanosis or edema. NEUROLOGICAL: Alert and oriented x 3. No focal sensory or strength deficits. Speech normal. Follows commands appropriately. PSYCHIATRIC: Normal Affect, judgement and mood. SKIN: Normal appearance with no rashes or lesions. TRAVEL OUTSIDE OF THE [place] IN LAST 30 DAYS: No - HPI Patient complains to provider of: Pain, Right, Elbow, Forearm, Hand, Wrist, Shoulder Onset: Other - 3 weeks Recent injury: No Quality of pain: Achy, Sharp Severity of pain: Moderate Pain Level: 4 Exacerbated by: Movement, Exertion Relieved by: Rest, Positioning Similar symptoms previously: Yes Recently seen / treated by doctor: No - Related Data Allergies/Adverse Reactions: Penicillins Allergy (Verified 09/30/19 18:54) Home Medications: xanax 1mg. trazadone 100mg hs Past Medical History - General Information source: Patient - Social History Smoking Status: Current Every Day Smoker Cigarette use (# per day): Yes - Half pack a day Smoking Education Provided: Yes - 4 minutes Frequency of alcohol use: None Drug Abuse: None Lives with: Family Family History: Reviewed & Not Pertinent Patient has suicidal ideation: No Patient has homicidal ideation: No - Past Medical History Cardiac Medical History: Reports: None Pulmonary Medical History: Reports: None EENT Medical History: Reports: None Neurological Medical History: Reports: None Endocrine Medical History: Reports: None Renal/ Medical History: Reports: None Malignancy Medical History: Reports: None GI Medical History: Reports: Hx Ulcer, Hx Colonoscopy, Hx Endoscopy Musculoskeletal Medical History: Reports None Skin Medical History: Reports None Psychiatric Medical History: Reports: Hx Anxiety Traumatic Medical History: Reports: None Infectious Medical History: Reports: None Past Surgical History: Reports: Hx Abdominal Surgery - ruptured ulcer repair/hernia repair, small bowel repair, Hx Appendectomy, Hx Tubal Ligation - Immunizations Immunizations up to date: Yes Hx Diphtheria, Pertussis, Tetanus Vaccination: Yes - 2012 Physical Exam - Vital signs Vitals: Temp Pulse Resp BP Pulse Ox 98.0 F 98 16 175/105 H 100 06/01/20 15:28 06/01/20 15:28 06/01/20 15:28 06/01/20 15:28 06/01/20 15:28 Course - Re-evaluation Re-evalutation: 06/01/20 21:34 X-rays discussed with patient and written report of x-rays given to patient. Patient decided she did not want the sling before discharge. She was instructed to please follow-up with her primary care and a orthopedic or back specialist. She did have mild disc height loss at C5-C7 with bilateral neural foramen narr owing. This was discussed with her and the patient was instructed please to follow-up. - Vital Signs Vital signs: Temp Pulse Resp BP Pulse Ox 98.2 F 75 16 178/90 H 97 06/01/20 17:05 06/01/20 17:05 06/01/20 15:28 06/01/20 17:05 06/01/20 17:05 - Diagnostic Test Radiology reviewed: Image reviewed, Reports reviewed Discharge - Discharge Clinical Impression: Degenerative disc disease, cervical, Foraminal narrowing cervical Condition: Stable Disposition: HOME, SELF-CARE Additional Instructions: I have discussed your x-rays with you. I have given you a written report of all of your x-rays Please follow-up with neurology and orthopedics. I have given you the back specialist number for the orthopedics and the local neurologist. Acetaminophen Acetaminophen may be taken for pain relief or fever control. It's much safer than aspirin, offering a wider range of "safe" dosages. It is safe during . Some brand names are Tylenol, Panadol, Datril, Anacin 3, Tempra, and Liquiprin. Acetaminophen can be repeated every four hours. The following are maximum recommended dosages: WEIGHT Dose Drops Elixir Chewable(80mg) (LBS.) drprs=droppers tsp=teaspoon 6 40 mg .4 ml (1/2) 6-11 80 mg .8 ml (full) 1/2 tsp 1 tab 12-16 120 mg 1 1/2 drprs 3/4 tsp 1 1/2 tabs 17-23 160 mg 2 drprs 1 tsp 2 tabs 24-30 240 mg 3 drprs 1 1/2 tsp 3 tabs 30-35 320 mg 2 tsp 4 tabs 36-41 360 mg 2 1/4 tsp 4 1/2 tabs 42-47 400 mg 2 1/2 tsp 5 tabs 48-53 480 mg 3 tsp 6 tabs 54-59 520 mg 3 1/4 tsp 6 1/2 tabs 60-64 560 mg 3 1/2 tsp 7 tabs 65-70 600 mg 3 3/4 tsp 7 1/2 tabs 71-76 640 mg 4 tsp 8 tabs 77-82 720 mg 4 1/2 tsp 9 tabs 83-88 800 mg 5 tsp 10 tabs >89 pounds or adults 650 mg to 900 mg Acetaminophen can be repeated every four hours. Maximum daily dose not to exceed 4000 mg. These maximum recommended dosages are slightly higher than the dosages written on the product container, but these dosages are very safe and well below the toxic dosage for acetaminophen. Ibuprofen Ibuprofen is an excellent, safe drug for pain control. In addition, it has potent antiinflammatory effects which are beneficial, especially in the treatment of injuries, arthritis, or tendonitis. It's best to take ibuprofen with food. Persons with ulcer disease or allergy to aspirin should notify their physician of this before taking ibuprofen. Take the medication exactly as prescribed. Don't take additional doses unless instructed to do so by your doctor. If you develop wheezing, shortness of breath, hives, faintness, stomach pain, vomiting, or dark black stools, re turn for re-evaluation at once. FOLLOW-UP CARE: If you have been referred to a physician for follow-up care, call the physicians office for an appointment as you were instructed or within the next two days. If you experience worsening or a significant change in your symptoms, notify the physician immediately or return to the Emergency Department at any time for re-evaluation. Forms: Elevated Blood Pressure, Smoking Cessation Education, Return to Work Referrals: IGLESIA TOTH MD [NO LOCAL MD] - Follow up as needed [facility] [Provider Group] - Follow up as needed
--- NOTE | 2020-06-01 16:09 | RADIOLOGY REPORT (SQ) ---
EXAM DESCRIPTION: ELBOW RIGHT OVER 2 VIEWS IMAGES COMPLETED DATE/TIME: 06/01/2020 4:00 pm REASON FOR STUDY: Increasing pain to the right entire arm COMPARISON: None. NUMBER OF VIEWS: Four views. TECHNIQUE: AP, lateral, and both oblique radiographic images acquired of the right elbow. LIMITATIONS: None. FINDINGS: MINERALIZATION: Normal. BONES: No acute fracture or dislocation. No worrisome bone lesions. JOINT: No effusion. SOFT TISSUES: No soft tissue swelling. No foreign body. OTHER: No other significant finding. IMPRESSION: NEGATIVE STUDY OF THE RIGHT ELBOW. NO RADIOGRAPHIC EVIDENCE OF ACUTE INJURY. TECHNICAL DOCUMENTATION: JOB ID: [id number] 2010 [employer]- All Rights Reserved Reading location - IP/workstation name: [email or web address]
--- NOTE | 2020-06-01 16:10 | RADIOLOGY REPORT (SQ) ---
EXAM DESCRIPTION: SHOULDER RIGHT 2 OR MORE VIEWS IMAGES COMPLETED DATE/TIME: 06/01/2020 4:00 pm REASON FOR STUDY: Increasing pain to the right entire arm COMPARISON: None. NUMBER OF VIEWS: Three views. TECHNIQUE: Internal rotation, external rotation, and Y view images acquired of the right shoulder. LIMITATIONS: None. FINDINGS: MINERALIZATION: Normal. BONES: No acute fracture. No worrisome bone lesions. JOINTS: No dislocation. VISUALIZED LUNGS AND RIBS: No pneumothorax. No rib fracture. SOFT TISSUES: No radiopaque foreign body. OTHER: No other significant finding. IMPRESSION: NEGATIVE STUDY OF THE RIGHT SHOULDER. NO RADIOGRAPHIC EVIDENCE OF ACUTE INJURY. TECHNICAL DOCUMENTATION: JOB ID: [id number] 2010 [employer]- All Rights Reserved Reading location - IP/workstation name: [email or web address]
--- NOTE | 2020-06-01 16:10 | RADIOLOGY REPORT (SQ) ---
EXAM DESCRIPTION: WRIST RIGHT 3 VIEWS IMAGES COMPLETED DATE/TIME: 06/01/2020 4:00 pm REASON FOR STUDY: Increasing pain to the right entire arm COMPARISON: None. NUMBER OF VIEWS: Three views. TECHNIQUE: AP, lateral, and oblique radiographic images acquired of the right wrist. LIMITATIONS: None. FINDINGS: MINERALIZATION: Normal. BONES: No acute fracture or dislocation. No worrisome bone lesions. Normal alignment. SOFT TISSUES: No soft tissue swelling. No foreign body. OTHER: No other significant finding. IMPRESSION: NEGATIVE STUDY OF THE RIGHT WRIST. NO RADIOGRAPHIC EVIDENCE OF ACUTE INJURY. TECHNICAL DOCUMENTATION: JOB ID: [id number] 2010 [employer]- All Rights Reserved Reading location - IP/workstation name: [email or web address]
--- NOTE | 2020-06-01 16:13 | RADIOLOGY REPORT (SQ) ---
EXAM DESCRIPTION: CERV SP 4 OR 5 VIEWS IMAGES COMPLETED DATE/TIME: 06/01/2020 4:00 pm REASON FOR STUDY: Increasing pain to the right entire arm COMPARISON: None. NUMBER OF VIEWS: Five views. TECHNIQUE: AP, lateral, obliques and odontoid radiographic images acquired of the cervical spine. LIMITATIONS: None. FINDINGS: MINERALIZATION: Normal. ALIGNMENT: Anatomic. VERTEBRAE: Vertebral bodies of normal height. DISCS: Disc height loss and endplate change at C5-6 and C6-7. FORAMINA: [id number] osseous neural foraminal narrowing at C5-6 bilaterally, left greater than right. LATERAL AND POSTERIOR ELEMENTS: Facets, lateral masses and spinous processes without significant find ings. HARDWARE: None in the spine. SOFT TISSUES: No masses or calcifications. Lung apices clear. OTHER: No other significant finding. IMPRESSION: 1. No evidence of acute bony abnormality of the cervical spine. 2. Mild disc height loss at C5 through C7 with associated [id number] osseous bilateral neural foraminal narrowing, left greater than right. TECHNICAL DOCUMENTATION: JOB ID: [id number] 2010 [employer]- All Rights Reserved Reading location - IP/workstation name: [email or web address]
[2020-06-01 17:08] VITALS: BP 178/90
== END 2020-06-01 17:08 | disposition home or self-care (01) ==
LOC: ER 15:22
DX: M50.30 Other cervical disc degeneration, unspecified cervical region (principal); M79.631 Pain in right forearm; M79.641 Pain in right hand; M25.521 Pain in right elbow; M25.531 Pain in right wrist; M25.511 Pain in right shoulder; F41.9 Anxiety disorder, unspecified; F17.210 Nicotine dependence, cigarettes, uncomplicated; Z71.6 Tobacco abuse counseling; Z79.899 Other long term (current) drug therapy
CPT/HCPCS: 72050; 99284; 99406

== ENCOUNTER 2020-08-23 16:54 | Emergency (ER) | payer SELFPAY ==
--- NOTE | 2020-08-23 17:52 | ER Document Report ---
ED Extremity Problem, Lower - General Chief Complaint: Ankle Pain Stated Complaint: ANKLE PAIN Time Seen by Provider: 08/23/20 17:46 Primary Care Provider: SHRUTHI CHOE MD [ACTIVE STAFF] - Follow up as needed Mode of Arrival: Ambulatory Information source: Patient Notes: Patient is a 34-year-old female comes emergency room complaint of right ankle pain. Patient states that 1 week ago at work she took a step towards the kitchen and she felt a pain in her right ankle area. She states she thought it was just immediate moment but over the course of the week is gotten more severe. Have a difficult time ambulating at all now. Patient denies any other traumatic events she did not roll it or twisted. She is attempted to use ibuprofen and some steroids she had at home without any success. Patient denies any other medical problems and rates her pain as a 4 out of 10 currently and patient does admit to smoking. TRAVEL OUTSIDE OF THE [place] IN LAST 30 DAYS: No - HPI Patient complains to provider of: Pain, Swelling. No: Injury Location: Ankle Occurred: Last week Where: Work Onset/Duration: Sudden Quality of pain: Achy, Throbbing Severity: Moderate Pain Level: 3 Context: Wearing shoes Recent injury: No Exacerbated by: Movement, Walking Relieved by: Elevation, Rest - Related Data Allergies/Adverse Reactions: Penicillins Allergy (Verified 09/30/19 18:54) Past Medical History - General Information source: Patient - Social History Smoking Status: Current Every Day Smoker Cigarette use (# per day): Yes Chew tobacco use (# tins/day): No Smoking Education Provided: No Frequency of alcohol use: None Drug Abuse: None Lives with: Family Family History: Reviewed & Not Pertinent Patient has homicidal ideation: No GI Medical History: Reports: Hx Ulcer, Hx Colonoscopy, Hx Endoscopy Psychiatric Medical History: Reports: Hx Anxiety Past Surgical History: Reports: Hx Abdominal Surgery - ruptured ulcer repair/hernia repair, small bowel repair, Hx Appendectomy, Hx Tubal Ligation - Immunizations Immunizations up to date: Yes Hx Diphtheria, Pertussis, Tetanus Vaccination: Yes - 2012 Review of Systems - Review of Systems Constitutional: No symptoms reported EENT: No symptoms reported Cardiovascular: No symptoms reported Respiratory: No symptoms reported Gastrointestinal: No symptoms reported Genitourinary: No symptoms reported Female Genitourinary: No symptoms reported Musculoskeletal: See HPI, Joint pain, Joint swelling Skin: No symptoms reported Hematologic/Lymphatic: No symptoms reported Neurological/Psychological: No symptoms reported -: Yes All other systems reviewed and negative Physical Exam - Vital signs Vitals: Temp Pulse Resp BP Pulse Ox 97.7 F 90 18 147/102 H 96 08/23/20 17:04 08/23/20 17:04 08/23/20 17:04 08/23/20 17:04 08/23/20 17:04 Interpretation: Hypertensive - Notes Notes: PHYSICAL EXAMINATION: GENERAL: Patient is a well-nourished well-developed 54-year-old female no apparent distress on examination this evening. HEAD: Atraumatic, normocephalic. LUNGS: Breath sounds clear to auscultation bilaterally and equal. No wheezes rales or rhonchi. HEART: Regular rate and rhythm without murmurs Musculoskeletal: Examination patient very concerned is her right ankle. Patient displays moderate tenderness across the anterior portion of the proximal ankle. Across the mid tarsal bones. There is mild swelling running from the anterior portion all the way across. Patient displays good dorsalis pedal pulse and good posterior tibial pulses good cap refill in nailbeds of the toes of the right foot. There is minimal swelling is noted. Patient has increased discomfort with inversion of the ankle and with flexion of the ankle.. NEUROLOGICAL: . Normal speech, normal gait. Normal sensory, motor exams PSYCH: Normal mood, normal affect. SKIN: Warm, Dry, normal turgor, no rashes or lesions noted. Course - Re-evaluation Re-evalutation: 08/23/20 20:11 Patient's x-rays are negative for any acute findings. Therefore were going with a strain ankle. She will continue with ibuprofen and steroids as she has not been at home. I will give her the name of orthopedist to follow-up with. - Vital Signs Vital signs: Temp Pulse Resp BP Pulse Ox 98.0 F 81 13 146/96 H 97 08/23/20 19:58 08/23/20 19:58 08/23/20 19:58 08/23/20 19:58 08/23/20 19:58 Procedures - Immobilization Right Ankle Pre-Proc Neuro Vasc Exam: Normal Immobilizer type: Cyril wrap Performed by: PCT Post-Proc Neuro Vasc Exam: Normal Alignment checked and good: Yes Discharge - Discharge Clinical Impression: Strain of right ankle Qualifiers: Encounter type: initial encounter Qualified Code(s): S96.911A - Strain of unspecified muscle and tendon at ankle and foot level, right foot, initial encounter Condition: Stable Disposition: HOME, SELF-CARE Instructions: Sprained Ankle ([facility]) Additional Instructions: As we discussed you may have strained a ligament or tendon in the area. I would recommend using an Cyril sock which we discussed about with is a sock basically with no toes are healing it and it is made of the cyril material that can gives it a snug fit. Ice to the ankle when you get home at night continue current medications. I will give you the name the orthopedist long [facility] beamer if you continue to problems you will need to contact the orthopedist for further evaluation and continuation of care. Should any concerns or problems over the weekend you return to ER for reevaluation. Forms: Smoking Cessation Education, Elevated Blood Pressure Referrals: SHRUTHI CHOE MD [ACTIVE STAFF] - Follow up as needed
--- NOTE | 2020-08-23 18:32 | RADIOLOGY REPORT (SQ) ---
EXAM DESCRIPTION: ANKLE RIGHT COMPLETE IMAGES COMPLETED DATE/TIME: 08/23/2020 6:16 pm REASON FOR STUDY: Pain COMPARISON: None. NUMBER OF VIEWS: Three views. TECHNIQUE: AP, lateral, and oblique radiographic images acquired of the right ankle. LIMITATIONS: None. FINDINGS: MINERALIZATION: Normal. BONES: No acute fracture or dislocation. The talar dome is intact. JOINTS: The ankle mortise is intact. There are enthesophytes at the calcaneal insertion of the Achil les tendon. The Achilles tendon silhouette is within normal limits. SOFT TISSUES: No soft tissue swelling. OTHER: No other findings. IMPRESSION: No acute osseous abnormality of the right ankle. TECHNICAL DOCUMENTATION: JOB ID: [id number] 2010 [employer]- All Rights Reserved Reading location - IP/workstation name: [email or web address]
[2020-08-23 20:00] VITALS: BP 146/96
== END 2020-08-23 20:20 | disposition home or self-care (01) ==
LOC: ER 16:54
DX: S96.911A Strain of unspecified muscle and tendon at ankle and foot level, right foot, initial encounter (principal); M25.571 Pain in right ankle and joints of right foot; X58.XXXA Exposure to other specified factors, initial encounter; F17.210 Nicotine dependence, cigarettes, uncomplicated
CPT/HCPCS: 99283

== ENCOUNTER → 2020-09-26 | Outpatient (CLI) | payer OTHER ==
--- NOTE | 2020-09-26 16:08 | RADIOLOGY REPORT (SQ) ---
EXAM DESCRIPTION: FOOT RIGHT COMPLETE IMAGES COMPLETED DATE/TIME: 09/26/2020 12:08 pm REASON FOR STUDY: STRESS FRACTURE, RIGHT FOOT, SUBS FOR FX W ROUTN HEAL M84.374D STRESS FRACTURE, R IGHT FOOT, SUBS FOR FX W ROUTN HE COMPARISON: None. NUMBER OF VIEWS: Three views. TECHNIQUE: AP, lateral and oblique radiographic images acquired of the right foot. LIMITATIONS: None. FINDINGS: MINERALIZATION: Normal. BONES: No acute fracture or dislocation. No worrisome bone lesions. JOINTS: No effusions. SOFT TISSUES: No soft tissue swelling. No foreign body. OTHER: No other significant finding. IMPRESSION: NEGATIVE STUDY OF THE RIGHT FOOT. NO RADIOGRAPHIC EVIDENCE OF ACUTE INJURY. TECHNICAL DOCUMENTATION: JOB ID: [id number] 2010 [employer]- All Rights Reserved Reading location - IP/workstation name: [email or web address]
== END ==
LOC: RAD 11:42
PROVIDERS: ATTEND Podiatrist Foot & Ankle Surgery
DX: M84.374D Stress fracture, right foot, subsequent encounter for fracture with routine healing (principal)